=== PATIENT | female | born 1965 | race Caucasian/White ===

== ENCOUNTER → 2016-11-20 | Outpatient (CLI) | payer BC | LOC: MC.RAD 07:57 | DX: Z12.31 Encounter for screening mammogram for malignant neoplasm of breast (principal); N64.89 Other specified disorders of breast ==

== ENCOUNTER → 2016-11-21 | Outpatient (CLI) | payer BC | LOC: MC.RAD 13:15 | DX: N60.01 Solitary cyst of right breast (principal); N64.89 Other specified disorders of breast ==